=== PATIENT | male | born 1965 | race Caucasian/White ===

== ENCOUNTER 2025-03-15 12:46 | Outpatient (CLI) | payer SELFPAY ==
--- NOTE | ~2025-03-15 | MR_ITS ---
MRI of the right knee Clinical history: Pain Technique: Coronal proton density and proton density-weighted images, sagittal proton-density and T2 fat-sat images, and axial proton-density fat-saturated images were acquired. Findings: Anterior and posterior cruciate ligaments are intact. Medial collateral ligament and the la teral collateral ligament complex are intact. Popliteus tendon is intact. There is complex tear of the body segment of the medial meniscus, which is diminutive in size. No lat eral meniscal tear seen. There is focal high-grade chondromalacia at the inferior aspect of the femoral trochlea centrally. Th ere is mild diffuse chondral thinning in the medial and lateral femoral condyles. Extensor mechanism is intact. Small joint effusion present. No Thrasher's cyst. Impression: Complex tearing of the body segment of the medial meniscus, which is diminutive. Focal high-grade chondromalacia the femoral trochlea. Mild diffuse chondral thinning of the medial an d lateral femoral condyles. Small joint effusion. Reviewed, dictated and finalized at location . Impression: Complex tearing of the body segment of the medial meniscus, which is diminutive . Focal high-grade chondromalacia the femoral trochlea. Mild diffuse chondral thi nning of the medial and lateral femoral condyles. Small joint effusion.
== END 2025-03-15 12:47 | disposition home or self-care (01) ==
DX: S83.231A Complex tear of medial meniscus, current injury, right knee, initial encounter (principal); M94.261 Chondromalacia, right knee; M25.461 Effusion, right knee; X58.XXXA Exposure to other specified factors, initial encounter
CPT/HCPCS: 73721